=== PATIENT | male | born 1990 ===

== ENCOUNTER 2022-05-15 12:51 | Emergency (ER) | payer SELFPAY ==
[~2022-05-15] VITALS: Ht 188 cm; Wt 88.0 kg
== END 2022-05-15 15:00 | disposition left against medical advice (07) ==
LOC: ER 12:51
DX: M54.50 Low back pain, unspecified (principal); Z53.21 Procedure and treatment not carried out due to patient leaving prior to being seen by health care provider
CPT/HCPCS: 99281

== ENCOUNTER → 2023-11-17 | Outpatient (CLI) | payer SELFPAY | LOC: LAB SHORT 18:31 | DX: Z11.3 Encounter for screening for infections with a predominantly sexual mode of transmission (principal) | CPT/HCPCS: 86592 ==